=== PATIENT | female | born 1975 | race Caucasian/White ===

== ENCOUNTER 2017-02-11 08:58 | Day surgery (SDC) | payer OTHER ==
[~2017-02-11] VITALS: Ht 170.2 cm; Wt 56.2 kg
[~2017-02-11 08:58] MED LIST: DAILY MULTIPLE1 EACH PO; IBUPROFEN600 MG PO; MAPAP325 MG PO; OXYCODON-ACETA1 EAC2 PO
[2017-02-11] MEDS ORDERED: HYDROMORPHONE HC4 MG PO (12:47)
[2017-02-11] MEDS ORDERED: MAPAP325 MG PO (12:47)
--- NOTE | 2017-02-14 11:31 | OR ---
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 Positive lateral margin of the excision site. 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 Positive lateral margin of the excision site. PROCEDURE PERFORMED: Right partial mastectomy. Additional biopsies of the breast cavity. SURGEON: Tyrell Johnson MD. ANESTHESIA: General LMA (Tyrell Eddy CRNA) and local 20 mL of 0.25% Marcaine with epinephrine. INDICATION: This 41-year-old white woman is a patient of Dr. Philippe and was found to have an abnormal mammogram on January 14, 2017, showing new calcifications and a spiculated type lesion. Ultrasound and ultimately image guided biopsy was performed confirming ductal carcinoma in situ with comedo type changes as well as one focus of microinvasive cancer. She has no evidence of palpable mass nor regional adenopathy. She had no family history of breast cancer. She underwent sentinel lymph node biopsies as well as excision of the mass via needle localization technique which was in the infraareolar area on the right side. The final pathology has returned the ductal carcinoma in situ, appears a positive margin on the lateral aspect. On that basis, I have recommended re-excision to provide for a negative margin. The risks of bleeding, infection, cosmetic deformity, and so forth were reviewed with her. She and her understand and wish to proceed. FINDINGS: Excellent cosmesis from prior excision was noted. Re-excision allowed for maintenance of good cosmesis with extra effort. The biopsy cavity was largely closed, though there was some ceruminous fluid in an incompletely closed biopsy cavity as well. The excision included the biopsy cavity to the right of the initial cavity with additional biopsies taken in the region as well. Electronically Signed By: TYRELL JOHNSON MD 02/14/17 1131 PATIENT NAME: LUCAS KATHLEEN OPERATIVE REPORT DATE OF : 71 PHYSICIAN: TYRELL JOHNSON MD REPORT #: [id number] REPORT IS CONFIDENTIAL AND NOT TO BE RELEASED WITHOUT AUTHORIZATION [facility] [address], [place] [address] Signed DESCRIPTION OF PROCEDURE: The patient was brought to the operating room, given a general anesthetic by LMA technique. Preoperative antibiotics were given. Sequential compression device and stockings used and heparin subcutaneously administered. Two remaining Steri-Strips on the previous circumareolar incision on the right side were removed and the breast prepared with a chlorhexidine solution and draped sterilely. The previous incision was well approximated. Fifteen blade was used to open the previous incision and was extended a bit more laterally making the incision in the 3 o ' clock to 9 o'clock configuration. Dissection was carried through the fibrotic dermis entering to a seroma cavity, which was largely reapproximated. Excess fluid was suctioned free. Excision of breast tissue including the base of the biopsy cavity extending to the lateral aspect was undertaken as wide as reasonable. Additional biopsies were taken in the deep portion of the cavity, the inferior aspect, the superior aspect, and the lateral aspect and labeled separately. Irrigation was undertaken and cautery w a s used for hemostasis. The parenchyma, which was rather modest in her case was reapproximated with interrupted 2-0 Vicryl and interrupted 2-0 Vicryl was used for the deep dermis and a running subcuticular 3-0 Vicryl for the skin. Steri-Strips were applied after application of 20 mL of 0.25% Marcaine with epinephrine for postoperative analgesia. A Mepilex silver sponge dressing was applied as was as an OpSite. The patient tolerated the procedure well. Cosmetic result was good. Blood loss was minimal. Sponge, needle, and instruments counts reported as correct x3. MD ABBIE Stapleton/Lay /[id number] cc: Dr. Leana Philippe Electronically Signed By: TYRELL JOHNSON MD 02/14/17 1131 PATIENT NAME: HEVERLUCAS OCHOA OPERATIVE REPORT DATE OF : 71 PHYSICIAN: TYRELL JOHNSON MD REPORT #: [id number] REPORT IS CONFIDENTIAL AND NOT TO BE RELEASED WITHOUT AUTHORIZATION
== END 2017-02-11 15:05 | disposition home or self-care (01) ==
LOC: DS 08:58
PROVIDERS: Surgery
PROC: 0HBTXZZ (ICD-10-PCS; principal; 2017-02-11 10:30)
DX: D05.11 Intraductal carcinoma in situ of right breast (principal); N64.1 Fat necrosis of breast; Z98.890 Other specified postprocedural states
CPT/HCPCS: 00404; J0690; J1100; J1644; J1885; J2250; J2405; J2704; J2765; J3010; J7120